=== PATIENT | female | born 1990 | race Caucasian/White ===

== ENCOUNTER 2017-08-08 12:20 | Emergency (ER) | payer OTHER ==
[~2017-08-08] VITALS: Ht 162.6 cm; Wt 80.1 kg
[~2017-08-08 12:20] MED LIST: PROZAC20 MG PO
[2017-08-08 13:56] LABS: HEMATOCRIT 39.3 % (36.0-46.0); MCH 25.1 PG (29.0-34.0); MCHC 31.6 G/DL (30.0-36.0); MCV 79.4 FL (83-99); MEAN PLAT.VOLUME 9.4 uM^3 (9.5-12.4); PLATELET COUNT 324 K/uL (156-360); RBC DIS.WIDTH-CV 22.1 % (11.8-14.6); RBC DIS.WIDTH-SD 61.3 % (39-53); RED BLOOD COUNT 4.95 M/uL (3.80-5.20); WHITE BLOOD COUNT 8.6 K/uL (4.1-10.2)
[2017-08-08 14:04] LABS: CHLORIDE 107 mEq/L (99-109); POTASSIUM 3.8 mEq/L (3.7-5.4); SODIUM 139 mEq/L (136-147)
[2017-08-08 14:06] LABS: GLUCOSE 104 mg/dL (70-99)
[2017-08-08 14:07] LABS: ANION GAP 10 MEQ/L (2-14)
[2017-08-08 14:09] LABS: SERUM ETHYL ALCOHOL < 10 mg/dL
[2017-08-08 14:10] LABS: ALKALINE PHOSPHATASE 56 IU/L (3-129); GFR ESTIMATE (CALCULATED) > 59 mL/min/
[2017-08-08 14:11] LABS: UREA NITROGEN (BUN) 8 mg/dL (9-23)
[2017-08-08 14:37] LABS: ADD MIUA? YES; BILIRUBIN NEGATIVE; BLOOD NEGATIVE; COLOR YELLOW ((YELLOW)); GLUCOSE (STRIP) NEGATIVE; KETONES 80; LEUKOCYTES TRACE; NITRITE NEGATIVE; PROTEIN (STRIP) 30; SPECIFIC GRAVITY 1.023 (1.000-1.030)
[2017-08-08] MEDS ORDERED: KLONOPIN0.5 M1 PO (14:37)
[2017-08-08 14:43] VITALS: BP 120/90
[2017-08-08 14:43] LABS: INTERNAL CONTROL VALID? YES
[2017-08-08 14:50] LABS: BACTERIA RARE /HPF; EPITHELIAL CELLS 2+ /HPF; MUCUS 1+ /LPF; RED BLOOD CELLS 0-5 /HPF (0-5); UCUL ADDED? NO; WHITE BLOOD CELLS 0-5 /HPF (0-5)
[2017-08-08 15:58] LABS: ADD MEDTOX COMMENT Y; AMPHETAMINE NEGATIVE (500 ng/mL); BARBITURATES NEGATIVE (200 ng/mL); BENZODIAZEPINES PRESUMPTIVE POSITIVE (150 ng/mL); COCAINE NEGATIVE (150 ng/mL); INTERNAL CONTROLS VALID? YES; METHADONE NEGATIVE (200 ng/mL); METHAMPHETAMINE NEGATIVE (500 ng/mL); OPIATES (MORPHINE) NEGATIVE (100 ng/mL); OXYCODONE NEGATIVE (100 ng/mL); PHENCYCLIDINE NEGATIVE (25 ng/mL); PROPOXYPHENE NEGATIVE (300 ng/mL); THC CANNABINOIDS NEGATIVE (50 ng/mL); TRICYCLIC ANTIDEPRESSANTS NEGATIVE (300 ng/mL)
[2017-08-08 16:27] LABS: BENZODIAZEPINES QUANT VALUE 0 NG/ML; BENZODIAZEPINES, URINE SCREEN Negative (200 ng/mL)
== END 2017-08-08 14:46 | disposition home or self-care (01) ==
LOC: EME 12:20
PROVIDERS: Emergency Medicine
DX: F41.9 Anxiety disorder, unspecified (principal); F42.9 Obsessive-compulsive disorder, unspecified; G47.00 Insomnia, unspecified; Z72.0 Tobacco use
CPT/HCPCS: 80053; 81003; 84703; 84999; 85027; 90839; 99281; 99284; G0480